=== PATIENT | male | born 1995 | race Caucasian/White ===

== ENCOUNTER 2019-01-15 18:47 | Emergency (ER) | payer OTHER ==
[2019-01-15 18:58] VITALS: TEMP 98.5
[2019-01-15] MEDS ORDERED: LIDOCAINE 1% INJ 10MG/ML (20 ML MDV) SQ ONE (19:08)
--- NOTE | 2019-01-15 20:13 | ED ---
General Adult HPI <Ayan Shetty - Last Filed: 01/15/19 22:38> - General Source: patient, RN notes reviewed Mode of arrival: wheelchair Limitations: no limitations <Nael Fischer - Last Filed: 01/17/19 10:29> - General Chief complaint: Psychiatric Symptoms Stated complaint: LACERATION LEFT ARM Time Seen by Provider: 01/15/19 19:01 - History of Present Illness Initial comments: 23-year-old male with a past medical history of bipolar disorder, ADHD presents to the emergency department for a chief complaint of cutting. Patient states that everything is past is just building up and he couldn't handle it anymore. States he that he cut his wrist because of this. [place] that he could not cope with it in any other way. Tetanus is up-to-date. Patient states he did feel suicidal at the time but is now denying any suicidal thoughts. Patient denies any thoughts of harming anyone else.Patient has no other complaints at this time including shortness of breath, chest pain, abdominal pain, nausea or vomiting, headache, or visual changes. (Nael Fischer) - Related Data Home Medications Medication Instructions Recorded Confirmed No Known Home Medications 01/15/19 01/15/19 Allergies Allergy/AdvReac Type Severity Reaction Status Date / Time No Known Allergies Allergy Verified 01/15/19 19:37 Review of Systems ROS Other: All systems not noted in ROS Statement are negative. <Ayan Shetty - Last Filed: 01/15/19 22:38> ROS Other: All systems not noted in ROS Statement are negative. <Nael Fischer - Last Filed: 01/17/19 10:29> ROS Statement: Those systems with pertinent positive or pertinent negative responses have been documented in the HPI. Past Medical History Past Medical History: Asthma History of Any Multi-Drug Resistant Organisms: None Reported Additional Past Surgical History / Comment(s): wisdom teeth Past Psychological History: No Psychological Hx Reported Smoking Status: Current every day smoker Past Alcohol Use History: None Reported Past Drug Use History: Marijuana <Nael Fischer - Last Filed: 01/17/19 10:29> General Exam Limitations: no limitations General appearance: alert, in no apparent distress Head exam: Present: atraumatic, normocephalic, normal inspection Eye exam: Present: normal appearance, PERRL, EOMI. Absent: scleral icterus, conjunctival injection ENT exam: Present: normal exam, mucous membranes moist Neck exam: Present: normal inspection, full ROM. Absent: tenderness, meningismus, lymphadenopathy Respiratory exam: Present: normal lung sounds bilaterally. Absent: respiratory distress, wheezes, rales, rhonchi, stridor Cardiovascular Exam: Present: regular rate, normal rhythm, normal heart sounds. Absent: systolic murmur, diastolic murmur, rubs, gallop, clicks Extremities exam: Present: other (Patient has multiple superficial lacerations noted of the left volar forearm. Patient does have one laceration that does extend into the subcutaneous tissue. This extends about 3 cm. No evidence of foreign body.) Neurological exam: Present: alert, oriented X3, CN II-XII intact Psychiatric exam: Present: normal affect, normal mood <Nael Fischer - Last Filed: 01/17/19 10:29> Course Vital Signs 01/15/19 01/15/19 18:55 23:25 Temperature 98.5 F Pulse Rate 94 60 Respiratory 16 18 Rate Blood Pressure 129/80 129/78 O2 Sat by Pulse 96 96 Oximetry Procedures - Laceration Laceration #1 Consent Obtained: verbal consent Indication: laceration Site: upper extremity Size (cm): 3 Description: linear Depth: simple, single layer Anesthetic Used: lidocaine 1% Anesthesia Technique: local infiltration Amount (mls): 4 Pre-repair: wound explored, irrigated extensively Type of Sutures: nylon Size of Sutures: 5-0 Number of Sutures: 3 Technique: simple, interrupted Patient Tolerated Procedure: well, no complications <Nael Fischer - Last Filed: 01/17/19 10:29> Medical Decision Making <Nael Fischer - Last Filed: 01/17/19 10:29> - Medical Decision Making 23-year-old male presents for cutting left forearm. Patient states he felt suicidal to time but is denying any suicidal thoughts at this time. Lacerations were repaired. Patient was educated to return in 7-10 days for suture removal. Patient was signed out to Dr. Shetty at 2100 pending EPS Eval (Nael Fischer) Disposition Is patient prescribed a controlled substance at d/c from ED?: No <Ayan Shetty - Last Filed: 01/15/19 22:38> Is patient prescribed a controlled substance at d/c from ED?: No Time of Disposition: 10:29 <Nael Fischer - Last Filed: 01/17/19 10:29> Clinical Impression: Depression Disposition: HOME SELF-CARE Condition: Good Instructions (If sedation given, give patient instructions): Depression (ED) Additional Instructions: Follow up with primary care in 1-2 days. Return to have sutures removed in 7-10 days or earlier if you develop any worsening symptoms. Referrals: None,Stated [Primary Care Provider] - 1-2 days
[2019-01-15 23:36] VITALS: BP 129/78; PULSE 60; RESP 18
== END 2019-01-15 23:25 | disposition home or self-care (01) ==
LOC: EC 18:47
DX: S51.812A Laceration without foreign body of left forearm, initial encounter (principal); F32.9 Major depressive disorder, single episode, unspecified; R45.851 Suicidal ideations; F17.200 Nicotine dependence, unspecified, uncomplicated; X78.9XXA Intentional self-harm by unspecified sharp object, initial encounter
CPT/HCPCS: 82075; 99283; 12002; J2001

== ENCOUNTER 2023-08-23 16:44 | Emergency (ER) | payer OTHER ==
--- NOTE | 2023-08-23 16:48 | ED ---
Chest Pain HPI - General Stated Complaint: Chest Pain Time Seen by Provider: 08/23/23 16:46 Source: patient Mode of arrival: ambulatory Limitations: no limitations - History of Present Illness Initial Comments: 28-year-old male presenting with chief complaint of chest pain. Pain is sharp in nature. Sent from urgent care. Pain is not pleuritic in nature. Patient states this has been happening biannually since age 13. He is having no shortness of breath. No palpitations. No lower extremity swelling. No nausea, vomiting, abdominal pain. No fever, chills, cough, congestion, sore throat. No dizziness or syncope. - Related Data Home Medications Medication Instructions Recorded Confirmed No Known Home Medications 01/15/19 01/15/19 Allergies Allergy/AdvReac Type Severity Reaction Status Date / Time No Known Allergies Allergy Verified 08/23/23 16:48 Review of Systems ROS Statement: Those systems with pertinent positive or pertinent negative responses have been documented in the HPI. ROS Other: All systems not noted in ROS Statement are negative. Past Medical History Past Medical History: Asthma History of Any Multi-Drug Resistant Organisms: None Reported Additional Past Surgical History / Comment(s): wisdom teeth Past Psychological History: No Psychological Hx Reported Past Alcohol Use History: None Reported Past Drug Use History: Marijuana General Exam Limitations: no limitations General appearance: alert, in no apparent distress Head exam: Present: atraumatic, normocephalic Eye exam: Present: normal appearance Neck exam: Present: normal inspection Respiratory exam: Present: normal lung sounds bilaterally. Absent: respiratory distress, wheezes, rales, rhonchi, stridor Cardiovascular Exam: Present: regular rate, normal rhythm, normal heart sounds. 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 [place] interval 170. QRS 112. QT 389. QTc 392. Incomplete right bundle branch block. Was pt. sent in by a medical professional or institution (, PA, DIRECTOR CLINICAL RESEARCH, urgent care, hospital, or [facility]...) When possible be specific @ -Sent by urgent care Did you speak to anyone other than the patient for history (EMS, parent, family, police, friend...)? What history was obtained from this source @ -No Did you review nursing and triage notes (agree or disagree)? Why? @ -I reviewed and agree with nursing and triage notes Were old charts reviewed (outside hosp., previous admission, EMS record, old EKG, old radiological studies, urgent care reports/EKG's, [facility] records)? Report findings @ -No old charts were reviewed Differential Diagnosis (chest pain, altered mental status, abdominal pain women, abdominal pain men, vaginal bleeding, weakness, fever, dyspnea, syncope, headache, dizziness, GI bleed, back pain, seizure, CVA, palpatations, mental health, musculoskeletal)? @ -MDM Differential Chest Pain: Stable Angina, Unstable Angina, STEMI, NSTEMI Aortic Dissection, Pneumothorax, Musculoskeletal, Esophageal Spasm GERD, Cholecystitis, Pancreatitis, Zoster This is not meant to be an all-inclusive list. EKG interpreted by me (3pts min.). @ -As above X-rays interpreted by me (1pt min.). @ -Chest x-ray shows no acute process CT interpreted by me (1pt min.). @ -None done U/S interpreted by me (1pt. min.). @ -None done What testing was considered but not performed or refused? (CT, X-rays, U/S, labs)? Why? @ -None What meds were considered but not given or refused? Why? @ -None Did you discuss the management of the patient with other professionals (professionals i.e. , PA, DIRECTOR CLINICAL RESEARCH, lab, RT, psych nurse, renal social worker, guardian family member, teacher, commercial account officer, management accounts manager)? Give summary @ -No Was smoking cessation discussed for >3mins.? @ -No Was critical care preformed (if so, how long)? @ -No Were there social determinants of health that impacted care today? How? (Homeles sness, low income, unemployed, alcoholism, drug addiction, transportation, low edu. Level, literacy, decrease access to med. care, skilled nursing, rehab)? @ -No Was there de-escalation of care discussed even if they declined (Discuss DNR or withdrawal of care, Hospice)? DNR status @ -No What co-morbidities impacted this encounter? (DM, HTN, Smoking, COPD, CAD, Cancer, CVA, ARF, Chemo, Hep., AIDS, mental health diagnosis, sleep apnea, morbid obesity)? @ -None Was patient admitted / discharged? Hospital course, mention meds given and route, prescriptions, significant lab abnormalities, going to OR and other pertinent info. @ -28-year-old male presenting with chief complaint of chest pain. Patient was having sharp chest pain which feels similar to episodes he has had previously, states that he has had this about twice a year since he was 13. History of physical exam were conducted. Lab work is grossly negative including negative troponin. EKG shows sinus rhythm and chest x-ray shows no acute process. PERC negative. On reassessment he is feeling better. He'll educated on today's findings and discharged home. Follow-up with PCP. Report back to ER with any new or worsening symptoms. Discussed return parameters and answered all questions. Patient conveyed verbal understanding and agreed to the plan. I discussed this case in detail with my attending Dr. Walker Undiagnosed new problem with uncertain prognosis? @ -No Drug Therapy requiring intensive monitoring for toxicity (Heparin, Nitro, Insulin, Cardizem)? @ -No Were any procedures done? @ -No Diagnosis/symptom? @ -Atypical chest pain Acute, or Chronic, or Acute on Chronic? @ -Acute Uncomplicated (without systemic symptoms) or Complicated (systemic symptoms)? @ -Uncomplicated Side effects of treatment? @ -No Exacerbation, Progression, or Severe Exacerbation? @ -No Poses a threat to life or bodily function? How? (Chest pain, [place], [place], pneumonia, PE, COPD, DKA, ARF, appy, cholecystitis, CVA, Diverticulitis, Homicidal, Suicidal, threat to staff... and all critical care pts) @ -Low likelihood Disposition Clinical Impression: Atypical chest pain Disposition: HOME SELF-CARE Condition: Good Instructions (If sedation given, give patient instructions): Chest Pain (ED) Additional Instructions: Follow-up with PCP. Report back to ER with any new or worsening symptoms. Is patient prescribed a controlled substance at d/c from ED?: No Referrals: None,Stated [Primary Care Provider] - 1-2 days Time of Disposition: 19:13
[2023-08-23 17:15] LABS: Basophils # (A) 0.1 k/uL (0-0.2); Basophils % (A) 1 %; Eosinophils # (A) 0.4 k/uL (0-0.7); Eosinophils % (A) 6 %; HCT 44.1 % (39.0-53.0); HGB 14.7 gm/dL (13.0-17.5); Lymphocytes # (A) 2.2 k/uL (1.0-4.8); Lymphocytes % (A) 32 %; MCHC 33.3 g/dL (31.0-37.0); Mean Platelet Volume 7.3; Monocytes # (A) 0.4 k/uL (0-1.0); Monocytes % (A) 6 %; Neutrophils # (A) 3.6 k/uL (1.3-7.7); Neutrophils % (A) 53 %; Platelet Count 254 k/uL (150-450); WBC 6.9 k/uL (3.8-10.6)
[2023-08-23 17:29] LABS: Partial Thromboplastin Time 27.3 sec (22.0-30.0); Prothrombin Time 10.6 sec (10.0-12.5)
[2023-08-23 17:49] LABS: ALT 23 U/L (4-49); AST 26 U/L (17-59); African American GFR (CKD) >90 (>60 ml/min/1.73 sqM); Albumin 4.3 g/dL (3.5-5.0); Alkaline Phosphatase 64 U/L (38-126); Anion Gap 11 mmol/L; Blood Urea Nitrogen 16 mg/dL (9-20); Calcium 9.5 mg/dL (8.4-10.2); Carbon Dioxide 24 mmol/L (22-30); Chloride 104 mmol/L (98-107); Glucose 95 mg/dL (74-99); Non-African American GFR(CKD) >90 (>60 ml/min/1.73 sqM); Potassium 4.2 mmol/L (3.5-5.1); Sodium 139 mmol/L (137-145); Total Bilirubin 0.3 mg/dL (0.2-1.3)
--- NOTE | 2023-08-23 18:43 | XR ---
EXAMINATION TYPE: XR chest 2V DATE OF EXAM: 08/23/2023 6:21 PM CLINICAL INDICATION:Male, 28 years old with history of Chest Pain; COMPARISON: None TECHNIQUE: XR chest 2V Frontal and lateral views of the chest. FINDINGS: Lungs/Pleura: There is no evidence of pleural effusion, focal consolidation, or pneumothorax. Pulmonary vascularity: Unremarkable. Heart/mediastinum: Cardiomediastinal silhouette is unremarkable. Musculoskeletal: No acute osseous pathology. Other findings: None IMPRESSION: No acute cardiopulmonary disease/process.
[2023-08-23 19:48] VITALS: BP 105/78; PULSE 64; RESP 17; TEMP 97.2
== END 2023-08-23 19:46 | disposition home or self-care (01) ==
LOC: EC 16:44
DX: I45.10 Unspecified right bundle-branch block (principal); J45.909 Unspecified asthma, uncomplicated; F12.90 Cannabis use, unspecified, uncomplicated
CPT/HCPCS: 36415; 71046; 80053; 83735; 84484; 85025; 85610; 85730; 93005; 99285